=== PATIENT | male | born 1970 | race Caucasian/White ===

== ENCOUNTER 2020-10-15 12:19 | Emergency (ER) | payer OTHER, BC ==
[2020-10-15 12:36] VITALS: BP 178/93; PULSE 95; O2SAT 96
[2020-10-15] MEDS ORDERED: BABY ASPIRIN 81 MG CHEW PO ONE (13:13)
--- NOTE | 2020-10-15 13:13 | ERPHSYRPT ---
- History of Present Illness Time Seen by Provider: 10/15/20 12:35 Exam Limitations: no limitations Patient Subjective Stated Complaint: " My lower right leg has been hurting some and it's really tender to touch. The area feels warm and it all started on Wednesday. I'm worried about infection in my blood, that's happened before when I got these knots in my legs. It hurts to touch but I can still walk okay." Triage Nursing Assessment: Pt presents to ER with complaints of right lower extremity pain (currently in no pain). Area does appear hot to touch and slightly pink, slight knot noted under the skin. No redness or streaking noted. Pt states area appeared this way on Wednesday and has history of infection in his legs. Pt is alert and oriented x 3. Able to ambulate and communicate regularly. Pt respirations are unlabored, states had a "head cold" the other day, but feels okay. Pt abd is soft and nontender. Skin pink, warm, and dry. Leg is tender to touch. Physician History: Patient is a 50-year-old male presents to our ED with complaints of left pain. Symptoms started yesterday. Pain described as an ache that is localized. The area is red and tender. Patient states he has a history of superficial blood clots. Patient also concerned that he may be developing an infection as he has had sepsis in the past due to a lower leg infection. Patient states he is prediabetic. He has no chest pain or shortness of breath. No nausea vomiting or diaphoresis no abdominal pain. Pain is not worse with ambulation. Patient states otherwise healthy. He voices no other complaints at this time. Method of Injury: unknown Occurred: this morning Quality: constant (Patient is declined pain medication.) Severity of Pain-Max: moderate Severity of Pain-Current: mild Lower Extremities Pain: leg: right Modifying Factors: Improves With: movement Associated Symptoms: none, No dizzy, No fainted, No seizure, No snapping sensation, No popping sensation Allergies/Adverse Reactions: ceftriaxone [From Rocephin] Allergy (Severe, Verified 10/15/20 12:36) Hx Tetanus, Diphtheria Vaccination/Date Given: Yes Hx Influenza Vaccination/Date Given: Yes Hx Pneumococcal Vaccination/Date Given: Yes Immunizations Up to Date: Yes Travel Risk - International Travel Have you traveled outside of the country in past 3 weeks: No - Coronavirus Screening Are you exhibiting any of the following symptoms?: No Close contact with a COVID-19 positive Pt in past 14-21 Days: No - Review of Systems Constitutional: No Symptoms, No Fever, No Chills Eyes: No Symptoms Ears, Nose, & Throat: No Symptoms Respiratory: No Symptoms, No Cough, No Dyspnea Cardiac: No Symptoms, No Chest Pain, No Edema, No Syncope Abdominal/Gastrointestinal: No Symptoms, No Abdominal Pain, No Nausea, No Vomiting, No Diarrhea Genitourinary Symptoms: No Symptoms, No Dysuria Musculoskeletal: No Symptoms, No Back Pain, No Neck Pain Skin: No Symptoms, No Rash Neurological: No Symptoms, No Dizziness, No Focal Weakness, No Sensory Changes Psychological: No Symptoms Endocrine: No Symptoms Hematologic/Lymphatic: No Symptoms Immunological/Allergic: No Symptoms All Other Systems: Reviewed and Negative - Past Medical History Pertinent Past Medical History: Yes Neurological History: No Pertinent History ENT History: No Pertinent History Cardiac History: Hypertension Respiratory History: No Pertinent History Endocrine Medical History: Diabetes Type II, Hypothyroidism Musculoskeletal History: No Pertinent History GI Medical History: Hernia History: No Pertinent History Male Reproductive Disorders: No Pertinent History - Past Surgical History Past Surgical History: Yes Gastrointestinal: Appendectomy Musculoskeletal: Amputation, Orthopedic Surgery Other Surgical History: R 2nd digit, traumatic injury, sven knee replacement - Social History Smoking Status: Never smoker Exposure to second hand smoke: No Drug Use: none Patient Lives Alone: No - Nursing Vital Signs Nursing Vital Signs: Initial Vital Signs Temperature 98.4 F 10/15/20 12:28 Pulse Rate 95 H 10/15/20 12:28 Respiratory Rate 18 10/15/20 12:28 Blood Pressure 178/93 10/15/20 12:28 O2 Sat by Pulse Oximetry 96 10/15/20 12:28 Pain Scale Pain Intensity 0 - Physical Exam General Appearance: no apparent distress, alert, No mild distress, No moderate distress Eyes, Ears, Nose, Throat Exam: moist mucous membranes Neck Exam: non-tender, supple Cardiovascular/Respiratory Exam: chest non-tender, normal breath sounds, regular rate/rhythm, no respiratory distress Gastrointestinal/Abdominal Exam: non-tender, guarding Back Exam: normal inspection, No vertebral tenderness Hips Exam: bilateral: non-tender, normal inspection, normal range of motion, no evidence of injury Legs Exam: right leg: pain, soft tissue tenderness, other (Right lower extremity has a 3 x 3 cm area of hyperemia versus early cellulitis. No liban calf pain or tenderness. No popliteal pain or tenderness. Compartments are soft. Cap refill less than 2 seconds. Involved lower extremities neurovascular intact distally. No trauma.), left leg: non-tender, normal inspection, normal range of motion, no evidence of injury Knees Exam: bilateral knee: non-tender, normal inspection, normal range of motion, no evidence of injury Ankle Exam: bilateral ankle: non-tender, normal inspection, normal range of motion, no evidence of injury Foot Exam: bilateral foot: non-tender, normal inspection, normal range of motion, no evidence of injury Neuro/Tendon Exam: normal sensation, normal motor functions Mental Status Exam: alert, oriented x 3, cooperative Skin Exam: normal color, warm, dry SpO2: 96 O2 Delivery: Room Air - Course Nursing assessment & vital signs reviewed: Yes - Radiology Ultrasound Exam Venous Lower Extremity Ultrasound: tele radiology report (Per verbal learning technologist report patient has a superficial thrombophlebitis.) Ordered Tests: Active Orders 24 hr Category Date Time Status VENOUS UNILAT/LIMITED EXTREMIT [US] Stat Exams 10/15/20 12:39 Taken Medication Summary Generic Name Dose Route Start Last Admin Trade Name Freq PRN Reason Stop Dose Admin Clindamycin HCl 300 mg 10/15/20 13:14 Cleocin 150 Mg Capsule PO 10/15/20 13:15 STAT ONE Discontinued Medications Generic Name Dose Route Start Last Admin Trade Name Freq PRN Reason Stop Dose Admin Aspirin 324 mg 10/15/20 13:13 Baby Aspirin 81 Mg Chew PO 10/15/20 13:14 STAT ONE - Progress Progress: improved Progress Note: 10/15/20 13:21 Patient reassessed. He feels well. Patient claimed pain medication. Patient receives his care at [facility]. Diagnosis is a superficial thrombophlebitis. Possible early cellulitis. We will treat with aspirin and clindamycin. Patient agrees to call his [facility] doctor today to schedule appointment for follow-up within 48 hours. Patient voices no other complaints at this time. Vital stable. No chest pain or shortness of breath. Will discharge home. Patient agrees to take 325 aspirin daily until symptoms resolve or until told otherwise by his primary care physician. 10/15/20 13:23 Counseled pt/family regarding: diagnosis, need for follow-up, rad results - Departure Departure Disposition: Home Clinical Impression: Thrombophlebitis, Cellulitis Condition: Stable Critical Care Time: No Additional Instructions: Discharge/Care Plan ALBA WILLIAMSON was seen on 10/15/20 in the Emergency Room. The patient was counseled regarding Diagnosis,Lab results, Imaging studies, need for follow up and when to return to the Emergency Room. Prescriptions given: Discharge Note I have spoken with the patient and/or caregivers. I have explained the patient's condition, diagnosis and treatment plan based on the information available to me at this time. I have answered the patient's and/or caregiver's questions and addressed any concerns. The patient and/or caregivers have as good understanding of the patient's diagnosis, condition and treatment plan as can be expected at this point. The vital signs have been stable. The patient's condition is stable and appropriate for discharge from the emergency department. The patient will pursue further outpatient evaluation with the primary care physician or other designated or consulting physician as outlined in the discharge instructions. The patient and/or caregivers are agreeable to this plan of care and follow-up instructions have been explained in detail. The patient and/or caregivers have received these instruction. The patient/and or caregivers are aware that any significant change in condition or worsening of symptoms should prompt an immediate return to this or the closest emergency department or call 911. Prescriptions: Clindamycin HCl 150 mg [Cleocin 150 mg Capsule] 2 cap PO QID #56 capsule
[2020-10-15] MEDS ORDERED: CLEOCIN 150 MG CAPSULE PO ONE (13:14)
--- NOTE | 2020-10-15 13:19 | XRAY ---
Indication: Right leg pain and swelling. Two-dimensional sonogram and color Doppler imaging of the major venous vessels of the right leg was performed. Comparison: None Medial calf demonstrates subcutaneous venous varicosities with intraluminal echodensities favoring thrombophlebitis. No thrombus seen in the examined deep venous vessels of the right leg including greater saphenous vein. Veins demonstrate normal compressibility. Venous waveforms are normal with and without augmentation. Impression: Medial calf subcutaneous thrombophlebitis. Remaining right leg negative for DVT.
[2020-10-15] MEDS ORDERED: BABY ASPIRIN 81 MG CHEW ONE (13:26)
[2020-10-15] MEDS ORDERED: CLEOCIN 150 MG CAPSULE ONE (13:26)
== END 2020-10-15 13:39 | disposition home or self-care (01) ==
LOC: ED 12:19
DX: I80.9 Phlebitis and thrombophlebitis of unspecified site (principal); L03.115 Cellulitis of right lower limb; I80.291 Phlebitis and thrombophlebitis of other deep vessels of right lower extremity
CPT/HCPCS: 93971; 99284; A9270-GY

== ENCOUNTER 2021-09-20 16:04 | Observation (INO) | payer OTHER ==
[2021-09-20] MEDS ORDERED: DUONEB 0.5-3 MG/3 ml Neb IH ONE ×2 (16:27→16:36)
[2021-09-20] MEDS ORDERED: BABY ASPIRIN 81 MG CHEW PO ONE (16:28)
--- NOTE | 2021-09-20 16:33 | ERPHSYRPT ---
- History of Present Illness Time Seen by Provider: 09/20/21 16:10 Source: patient Exam Limitations: no limitations Physician History: 51 years old morbidly obese male with history of hypertension, hyperlipidemia, hypothyroidism, diabetes mellitus presented to the ER with chief complaint of intermittent shortness of breath with activity and chest pain since yesterday e vening. Patient reports getting short of breath with minimal activity and gets better with resting. Reports dull aching intermittent pain with radiation to the neck which is also aggravated with activity and shortness of breath. Denies any fever or chills. No cough or sick contact. Does not have history of CAD but does have family history of CAD. Timing/Duration: yesterday, constant, gradual onset, worse Activities at Onset: activity Severity of Dyspnea-Max: moderate Severity of Dyspnea-Current: moderate Possible Cause: no prior episodes Modifying Factors: Improves With: rest. Worsens With: activity, exertion Associated Symptoms: intermittent, chest pain/discomfort, tightness Allergies/Adverse Reactions: ceftriaxone [From Rocephin] Allergy (Severe, Verified 09/20/21 20:56) Anaphylactic Reaction Home Medications: Allopurinol 100 mg [Zyloprim 100 mg] 2 ea DAILY 09/20/21 [History] Aspirin 81 gm Chew [Baby Aspirin 81 mg Chew] 1 ea DAILY 09/20/21 [History] Lisinopril 10 mg [Zestril 10 MG] 10 mg PO DAILY 09/20/21 [History] Metformin HCl [Metformin ER Gastric] 1 ea BID 09/20/21 [History] Hx Tetanus, Diphtheria Vaccination/Date Given: Yes Hx Influenza Vaccination/Date Given: Yes Hx Pneumococcal Vaccination/Date Given: Yes - Review of Systems Constitutional: No Symptoms Eyes: No Symptoms Ears, Nose, & Throat: No Symptoms Respiratory: Dyspnea, Dyspnea on Exertion ([place]) Cardiac: Chest Pain Abdominal/Gastrointestinal: No Symptoms Genitourinary Symptoms: No Symptoms Musculoskeletal: No Symptoms Skin: No Symptoms Neurological: No Symptoms Psychological: No Symptoms Endocrine: No Symptoms Hematologic/Lymphatic: No Symptoms - Past Medical History Pertinent Past Medical History: Yes Neurological History: No Pertinent History ENT History: No Pertinent History Cardiac History: Hypertension Respiratory History: No Pertinent History Endocrine Medical History: Diabetes Type II, Hypothyroidism Musculoskeletal History: No Pertinent History GI Medical History: Hernia History: No Pertinent History Male Reproductive Disorders: No Pertinent History - Past Surgical History Past Surgical History: Yes Gastrointestinal: Appendectomy Musculoskeletal: Amputation, Orthopedic Surgery Other Surgical History: R 2nd digit, traumatic injury, sven knee replacement - Social History Smoking Status: Never smoker Exposure to second hand smoke: No Drug Use: none Patient Lives Alone: No - Nursing Vital Signs Nursing Vital Signs: Initial Vital Signs Temperature 97.2 F 09/20/21 16:04 Pulse Rate 73 09/20/21 16:04 Respiratory Rate 22 09/20/21 16:04 Blood Pressure 160/92 09/20/21 16:04 O2 Sat by Pulse Oximetry 97 09/20/21 16:04 Pain Scale Pain Intensity 4 - Physical Exam General Appearance: no apparent distress, alert Eye Exam: PERRL/EOMI, eyes nml inspection Ears, Nose, Throat Exam: hearing grossly normal, normal pharynx Neck Exam: normal inspection, non-tender, supple, full range of motion Respiratory Exam: normal breath sounds, lungs clear Abdominal/Gastrointestinal Exam: soft, normal bowel sounds, No tenderness Extremity Exam: non-tender, normal range of motion Neurologic Exam: alert, oriented x 3, cooperative Skin Exam: normal color SpO2 Interpretation: normal SpO2: 96 O2 Delivery: Room Air - Course EKG Interpreted by Me: RATE (78), Sinus Rhythm, NORMAL AXIS, NORMAL INTERVALS, Q-wave (Anterior), Other (LVH pattern) Ordered Tests: Active Orders 24 hr Category Date Time Status Bedrest ROUTINE Activity 09/20/21 20:26 Active Up With Assistance ROUTINE Activity 09/20/21 20:26 Active Edge Worker STAT Care 09/20/21 16:28 Completed Code Status Order ROUTINE Care 09/20/21 20:26 Active EKG-ER Only STAT Care 09/20/21 16:27 Completed Fall Protocol ROUTINE Care 09/20/21 20:26 Active IV Care Q6H Care 09/20/21 20:26 Active IV Insertion STAT Care 09/20/21 16:27 Completed POCT Glucose Check ACHS Care 09/20/21 20:[address] in Observation ROUTINE Care 09/20/21 20:26 Active [place], Apply ROUTINE Care 09/20/21 20:26 Active Weight,Daily 0600 Care 09/20/21 20:26 Active Consistent Carbohydrate Diet 1800 Calorie Diet 09/20/21 Breakfast Active CHEST 1 VIEW (PORTABLE) Stat Exams 09/20/21 16:27 Completed CHEST WITH CONTRAST [CT] Stat Exams 09/20/21 16:59 Completed CBC W DIFF AM.LAB Lab 09/21/21 04:00 Ordered CBC W DIFF Stat Lab 09/20/21 16:25 Completed CMP AM.LAB Lab 09/21/21 04:00 Ordered CMP Stat Lab 09/20/21 16:27 Completed D-DIMER QUANTITATIVE Stat Lab 09/20/21 16:25 Completed MAGNESIUM Stat Lab 09/20/21 16:27 Completed NT PRO BNP Stat Lab 09/20/21 16:27 Completed TROPONIN Q3H Lab 09/20/21 16:25 Completed TROPONIN Q3H Lab 09/20/21 19:11 Completed TROPONIN Q3H Lab 09/20/21 22:30 Ordered TROPONIN Q3H Lab 09/21/21 01:30 Ordered TROPONIN Q3H Lab 09/21/21 04:30 Ordered Respiratory Therapy Assessment DAILY RT 09/20/21 16:43 Completed Transfer Order Routine Transfer 09/20/21 Completed Medication Summary Generic Name Dose Route Start Last Admin Trade Name Freq PRN Reason Stop Dose Admin Acetaminophen 650 mg 09/20/21 20:26 Acetaminophen 325 Mg Tablet PO 10/20/21 20:25 Q4H PRN PRN PAIN AND/OR FEVER Albuterol/Ipratropium 3 ml 09/20/21 20:26 Ipratropium/Albuterol Sulfate 3 Ml Ampul.Neb [facility] 10/20/21 20:25 Q4HPRN PRN SHORTNESS OF BREATH/WHEEZING Hydromorphone HCl 0.5 mg 09/20/21 20:26 Hydromorphone 1 Mg/1ml Inj 1 Mg/Ml Syringe IV 09/25/21 20:25 Q4H PRN PRN PAIN Insulin Human Lispro 0 unit 09/20/21 20:26 Insulin Lispro 1 Unit SQ 10/20/21 20:25 UD PRN HYPERGLYCEMIA Ondansetron HCl 4 mg 09/20/21 20:26 Ondansetron Hcl 4 Mg/2 Ml Vial IV 10/20/21 20:25 Q6H PRN PRN NAUSEA/VOMITING Pantoprazole Sodium 40 mg 09/21/21 10:00 09/20/21 21:55 Pantoprazole 40 Mg Vial IV 10/21/21 09:59 40 mg Q24H10 SYED Administration Discontinued Medications Generic Name Dose Route Start Last Admin Trade Name Kayley PRN Reason Stop Dose Admin Albuterol/Ipratropium 3 ml 09/20/21 16:27 09/20/21 16:40 Ipratropium/Albuterol Sulfate 3 Ml Ampul.Neb [facility] 09/20/21 16:28 3 ml STAT ONE Administration Albuterol/Ipratropium Confirm 09/20/21 16:36 Ipratropium/Albuterol Sulfate 3 Ml Ampul.Neb Administered 09/20/21 16:37 Dose 3 ml [facility] .STK-MED ONE Aspirin 324 mg 09/20/21 16:28 09/20/21 16:52 Aspirin 81 Mg Tab.Chew PO 09/20/21 16:29 324 mg STAT ONE Administration Pantoprazole Sodium Confirm 09/20/21 21:49 Pantoprazole 40 Mg Vial Administered 09/20/21 21:50 Dose 40 mg IV .STK-MED ONE Lab/Rad Data: Laboratory Result Diagrams 09/20/21 16:25 09/20/21 16:27 Laboratory Results 09/20/21 09/20/21 09/20/21 Range/Units 19:11 19:11 16:27 WBC (4.0-10.5) K/mm3 RBC (4.1-5.6) M/mm3 Hgb (12.5-18.0) gm/dl Hct (42-50) % MCV (78-100) fl MCH (26-32) pg MCHC (32-36) g/dl RDW (11.5-14.0) % Plt Count (150-450) K/mm3 MPV (7.5-11.0) fl Gran % (36.0-66.0) % Eos # (Auto) (0-0.5) Absolute Lymphs (auto) (1.0-4.6) Absolute Monos (auto) (0.0-1.3) Lymphocytes % (24.0-44.0) % Monocytes % (0.0-12.0) % Eosinophils % (0.00-5.0) % Basophils % (0.0-0.4) % Absolute Granulocytes (1.4-6.9) Basophils # (0-0.4) D-Dimer (215-500) ng/mL Sodium 141 (137-145) mmol/L Potassium 3.8 (3.5-5.1) mmol/L Chloride 104 (98-107) mmol/L Carbon Dioxide 28 (22-30) mmol/L Anion Gap 12.9 (5-15) MEQ/L BUN 13 (9-20) mg/dL Creatinine 0.89 (0.66-1.25) mg/dL Estimated GFR > 60.0 ML/MIN Glucose 117 H (74-106) mg/dL Calcium 8.7 (8.4-10.2) mg/dL Magnesium 1.9 (1.6-2.3) mg/dL Total Bilirubin 0.70 (0.2-1.3) mg/dL AST 39 (17-59) U/L ALT 36 (0-50) U/L Alkaline Phosphatase 60 (38-126) U/L Troponin I < 0.012 (0.000-0.034) ng/mL NT-Pro-B Natriuret Pep 66.0 (0-900) pg/mL Serum Total Protein 7.5 (6.3-8.2) g/dL Albumin 4.2 (3.5-5.0) g/dL SARS-CoV-2 (PCR) NEGATIVE (NEGATIVE) 09/20/21 09/20/21 09/20/21 Range/Units 16:25 16:25 16:25 WBC 5.4 (4.0-10.5) K/mm3 RBC 4.84 (4.1-5.6) M/mm3 Hgb 13.8 (12.5-18.0) gm/dl Hct 43.1 (42-50) % MCV 89.0 (78-100) fl MCH 28.5 (26-32) pg MCHC 32.0 (32-36) g/dl RDW 14.2 H (11.5-14.0) % Plt Count 305 (150-450) K/mm3 MPV 10.2 (7.5-11.0) fl Gran % 58.0 (36.0-66.0) % Eos # (Auto) 0.17 (0-0.5) Absolute Lymphs (auto) 1.48 (1.0-4.6) Absolute Monos (auto) 0.57 (0.0-1.3) Lymphocytes % 27.6 (24.0-44.0) % Monocytes % 10.6 (0.0-12.0) % Eosinophils % 3.2 (0.00-5.0) % Basophils % 0.6 (0.0-0.4) % Absolute Granulocytes 3.12 (1.4-6.9) Basophils # 0.03 (0-0.4) D-Dimer 1900 H* (215-500) ng/mL Sodium (137-145) mmol/L Potassium (3.5-5.1) mmol/L Chloride (98-107) mmol/L Carbon Dioxide (22-30) mmol/L Anion Gap (5-15) MEQ/L BUN (9-20) mg/dL Creatinine (0.66-1.25) mg/dL Estimated GFR ML/MIN Glucose (74-106) mg/dL Calcium (8.4-10.2) mg/dL Magnesium (1.6-2.3) mg/dL Total Bilirubin (0.2-1.3) mg/dL AST (17-59) U/L ALT (0-50) U/L Alkaline Phosphatase (38-126) U/L Troponin I < 0.012 (0.000-0.034) ng/mL NT-Pro-B Natriuret Pep (0-900) pg/mL Serum Total Protein (6.3-8.2) g/dL Albumin (3.5-5.0) g/dL SARS-CoV-2 (PCR) (NEGATIVE) - Progress Progress: unchanged Air Movement: good Progress Note: 09/20/21 18:45 51 years old is evaluated for dyspnea on exertion and chest pain. EKG did not show any acute ischemic changes. Negative initial troponins. D-dimers are elevated, CTA negative for any acute cardiopulmonary findings. No pulmonary embolism. Grossly unremarkable work-up. Patient has a heart score of 4, discussed with Dr. Jackson, reviewed history work-up and patient is accepted for observation admission to rule out ACS. Blood Culture(s) Obtained: No Antibiotics given: No Discussed with DrCamryn: Iam Will see patient in: hospital (observation) Counseled pt/family regarding: lab results, diagnosis, rad results - Departure Departure Disposition: Observation Clinical Impression: Dyspnea on exertion Condition: Stable Critical Care Time: No
[2021-09-20 16:34] LABS: Absolute Neutrophil Ct (ANC) 3.12 (1.4-6.9); BASOPHIL % 0.6 % (0.0-0.4); Basophil (Absolute #) 0.03 (0-0.4); Eosinophil % 3.2 % (0.00-5.0); Eosinophil (Absolute #) 0.17 (0-0.5); Hematocrit 43.1 % (42-50); Hemoglobin 13.8 gm/dl (12.5-18.0); Lymphocyte (Absolute #) 1.48 (1.0-4.6); Lymphocytes % 27.6 % (24.0-44.0); Mean Corpuscular Hemoglobin 28.5 pg (26-32); Mean Platelet Volume 10.2 fl (7.5-11.0); Monocyte (Absolute #) 0.57 (0.0-1.3); Monocytes % 10.6 % (0.0-12.0); Platelet Count 305 K/mm3 (150-450); Red Blood Count 4.84 M/mm3 (4.1-5.6); Red Cell Distribution Width 14.2 % (11.5-14.0); White Blood Count 5.4 K/mm3 (4.0-10.5)
[2021-09-20 16:57] LABS: ALBUMIN 4.2 g/dL (3.5-5.0); ALKALINE PHOSPHATASE 60 U/L (38-126); ANION GAP 12.9 MEQ/L (5-15); BLOOD UREA NITROGEN 13 mg/dL (9-20); CHLORIDE 104 mmol/L (98-107); Calcium 8.7 mg/dL (8.4-10.2); Carbon Dioxide 28 mmol/L (22-30); Creatinine 1 0.89 mg/dL (0.66-1.25); EST GLOMERULAR FILTRATION RATE > 60.0 ML/MIN; Glucose 117 mg/dL (74-106); MAGNESIUM 1.9 mg/dL (1.6-2.3); Potassium 3.8 mmol/L (3.5-5.1); SGOT/AST 39 U/L (17-59); SGPT/ALT 36 U/L (0-50); SODIUM 141 mmol/L (137-145); Total Protein 7.5 g/dL (6.3-8.2)
--- NOTE | 2021-09-20 20:15 | XRAY ---
Indication: Short of breath. Comparison: None Portable chest demonstrates right hemidiaphragm elevation with right base atelectasis. Remaining heart, lungs, and bony thorax unremarkable.
--- NOTE | 2021-09-20 20:20 | XRAY ---
Indication: Short of breath. Elevated d-dimer. Multiple contiguous axial images obtained through the chest using 100 cc Isovue 370 contrast and PE protocol. Comparison: None There is good opacification of the pulmonary arteries to include the lobar and segmental branches. No pulmonary embolus. Heart is not enlarged. Aorta is normal in course and caliber. No pathologic mediastinal/hilar lymphadenopathy. Incidental 3.2 cm left thyroid hypodense nodule/cyst. There is right hemidiaphragm elevation with mild right base atelectasis. No suspicious pulmonary mass/nodule, infiltrate, effusion, or pneumothorax. Bony thorax intact. Limited upper abdomen demonstrates fatty liver. Impression: 1. Negative pulmonary embolus. No acute cardiopulmonary abnormalities. 2. Incidental right hemidiaphragm elevation with right base atelectasis, left thyroid hypodense nodule/cyst, and fatty liver. Comment: Preliminary interpretation made by [facility]. No critical discrepancy.
[2021-09-20] MEDS ORDERED: Hydromorphone 1 mg/ml Injection IV PRN (20:26)
[2021-09-20] MEDS ORDERED: HUMALOG SQ PRN (20:26)
[2021-09-20] MEDS ORDERED: TYLENOL 325 MG PO PRN (20:26)
[2021-09-20] MEDS ORDERED: Zofran 4 MG/2 ML VIAL IV PRN (20:26)
[2021-09-20] MEDS ORDERED: DUONEB 0.5-3 MG/3 ml Neb IH PRN (20:26)
[2021-09-20] MEDS ORDERED: PROTONIX 40 MG IV IV ONE (21:49)
[2021-09-21] MEDS ORDERED: solu-MEDROL 80 MG, Sterile H2O 10 ml 2 ML IV ONE ×2 (04:00)
[2021-09-21 06:05] LABS: Absolute Neutrophil Ct (ANC) 3.31 (1.4-6.9); BASOPHIL % 0.5 % (0.0-0.4); Basophil (Absolute #) 0.03 (0-0.4); Eosinophil % 3.9 % (0.00-5.0); Eosinophil (Absolute #) 0.22 (0-0.5); Hematocrit 42.9 % (42-50); Hemoglobin 13.5 gm/dl (12.5-18.0); Lymphocyte (Absolute #) 1.52 (1.0-4.6); Lymphocytes % 26.9 % (24.0-44.0); Mean Cell Volume 89.6 fl (78-100); Mean Corpuscular Hemoglobin 28.2 pg (26-32); Mean Corpuscular Hgb Concent. 31.5 g/dl (32-36); Mean Platelet Volume 10.5 fl (7.5-11.0); Monocyte (Absolute #) 0.57 (0.0-1.3); Monocytes % 10.1 % (0.0-12.0); Neutrophil % 58.6 % (36.0-66.0); Platelet Count 296 K/mm3 (150-450); Red Blood Count 4.79 M/mm3 (4.1-5.6); Red Cell Distribution Width 14.4 % (11.5-14.0); White Blood Count 5.7 K/mm3 (4.0-10.5)
[2021-09-21 06:34] LABS: ALBUMIN 3.9 g/dL (3.5-5.0); ALKALINE PHOSPHATASE 54 U/L (38-126); ANION GAP 10.8 MEQ/L (5-15); BLOOD UREA NITROGEN 13 mg/dL (9-20); CHLORIDE 103 mmol/L (98-107); Calcium 8.8 mg/dL (8.4-10.2); Carbon Dioxide 30 mmol/L (22-30); Creatinine 1 0.94 mg/dL (0.66-1.25); EST GLOMERULAR FILTRATION RATE > 60.0 ML/MIN; Glucose 130 mg/dL (74-106); Potassium 3.7 mmol/L (3.5-5.1); SGOT/AST 31 U/L (17-59); SGPT/ALT 35 U/L (0-50); SODIUM 140 mmol/L (137-145); Total Protein 7.2 g/dL (6.3-8.2)
[2021-09-21] MEDS ORDERED: PROTONIX 40 MG IV IV SCH (10:00)
[2021-09-21] MEDS: Lexapro 10 MG PO SCH (11:11)
[2021-09-21] MEDS: hydroDIURIL 25 MG PO SCH (11:11)
[2021-09-21] MEDS: SYNTHROID 88 MCG PO SCH (11:12)
[2021-09-21] MEDS: Zestril 20 MG PO SCH (11:12)
[2021-09-21] MEDS: ZYLOPRIM 100 MG PO SCH (11:12)
[2021-09-21] MEDS: ECOTRIN 81 MG PO SCH (11:12)
--- NOTE | 2021-09-21 14:24 | PCM.HP ---
History of Present Illness - Chief Complaint Chief Complaint: Dyspnea on exertion History of Present Illness: is a 51 year old male pt of Keily Bob NP at [facility], with PMHx HTN, hyperlipidemia, hypothyroidism, DM, morbid obesity, anxiety/depression who was admitted through ER with SOB. He says he's had SOB with anxeity for years, but 2 nights ago at work something changed. He was getting out of his chair and found himself very short of breath; didn't have enough air to yawn. He also had chest pressure, 7/10, radiated to his neck. Better when he would calm down. C/o palpitations; no diaphoresis, no nausea. Does tend to have occasional edema of the LE. This morning he said he still gets short of breath with as little exertion as tossing in his bed. In the ER note it says he has FHx CAD, but his story today endorses more of a viral cardiomyopathy in his dad, starting at age 52. Pt was admitted for CP/r/o NH. Troponins are neg x 5. EKG was non-acute. He did have a CT chest, neg for PE, but showed a 3.2cm thyroid mass, new. - Review of Systems Respiratory: Short Of Breath Cardiac: Chest Pain, Palpitations Psychological: Anxiety All Other Systems: Reviewed and Negative Medications & Allergies Home Medications: Home Medication List Allopurinol 100 mg [Zyloprim 100 mg] 200 mg PO DAILY 09/20/21 [History Confirmed 09/20/21] Aspirin 81 gm Chew [Baby Aspirin 81 mg Chew] 1 ea DAILY 09/20/21 [History Confirmed 09/20/21] Escitalopram Oxalate [Lexapro] 20 mg PO DAILY 09/20/21 [History Confirmed 09/20/21] Hydrochlorothiazide 25 mg [hydroDIURIL 25 MG] 25 mg PO DAILY 09/20/21 [History Confirmed 09/20/21] Levothyroxine Sodium 88 Mcg [Synthroid 88 Mcg] 88 mcg PO DAILY 09/20/21 [History Confirmed 09/20/21] Metformin HCl 1,000 mg PO BID 09/20/21 [History Confirmed 09/20/21] lisinopriL [Zestril] 40 mg PO DAILY 09/20/21 [History Confirmed 09/20/21] Allergies/Adverse Reactions: Allergies Allergy/AdvReac Type Severity Reaction Status Date / Time ceftriaxone [From Rocephin] Allergy Severe Anaphylactic Verified 09/20/21 20:56 Reaction - Past Medical History Past Medical History: Yes Neurological History: No Pertinent History ENT History: No Pertinent History Cardiac History: Hypertension Respiratory History: No Pertinent History Endocrine Medical History: Diabetes Type II, Hypothyroidism Musculoskelatal History: No Pertinent History GI Medical History: Hernia History: No Pertinent History Pyscho-Social History: Anxiety Male Reproductive Disorders: No Pertinent History Comment: Gout arthritis - Past Surgical History Past Surgical History: Yes GI Surgical History: Appendectomy Musculskeletal Surgical Hx: Amputation, Orthopedic Surgery Other Surgical History: R 2nd digit, traumatic injury, sven knee replacement - Social History Smoking Status: Never smoker Exposure to second hand smoke: No Alcohol: None Drug Use: none - Physical Exam Vital Signs: Vital Signs - 24 hr Temp Pulse Resp BP Pulse Ox 09/21/21 11:08 97.5 F 79 18 145/80 94 L 09/21/21 10:00 82 18 94 L 09/21/21 07:48 97.5 F 80 18 141/88 96 09/21/21 04:00 97.5 F 72 19 143/69 94 L 09/20/21 23:50 98.6 F 80 20 134/60 93 L 09/20/21 22:11 96 09/20/21 21:12 97.7 F 69 20 147/75 97 09/20/21 20:55 69 18 93 L 09/20/21 19:34 70 19 155/81 95 09/20/21 18:46 97.2 F 69 20 162/68 98 09/20/21 17:10 71 18 155/78 96 09/20/21 16:43 79 18 96 09/20/21 16:18 22 96 09/20/21 16:04 97.2 F 73 22 160/92 97 General Appearance: no apparent distress, alert, obese Neurologic Exam: oriented x 3, cooperative Eye Exam: eyes nml inspection Ears, Nose, Throat Exam: moist mucous membranes Neck Exam: normal inspection, non-tender, No mass, No lymphadenopathy, No th yromegaly Respiratory Exam: normal breath sounds, lungs clear, No crackles/rales, No rhonchi, No wheezing Cardiovascular Exam: regular rate/rhythm, normal heart sounds, No murmur Gastrointestinal/Abdomen Exam: soft, normal bowel sounds, No tenderness, No distention, No mass, No guarding, No rebound Back Exam: normal inspection, No CVA tenderness, No rash Extremity Exam: swelling (1+ pretibial edema bilat) Skin Exam: normal color, warm, dry, No rash Results - Labs Lab/Micro Results: Lab Results-Last 24 Hours 09/20/21 09/20/21 09/20/21 Range/Units 16:25 16:25 16:25 WBC 5.4 (4.0-10.5) K/mm3 RBC 4.84 (4.1-5.6) M/mm3 Hgb 13.8 (12.5-18.0) gm/dl Hct 43.1 (42-50) % MCV 89.0 (78-100) fl MCH 28.5 (26-32) pg MCHC 32.0 (32-36) g/dl RDW 14.2 H (11.5-14.0) % Plt Count 305 (150-450) K/mm3 MPV 10.2 (7.5-11.0) fl Gran % 58.0 (36.0-66.0) % Eos # (Auto) 0.17 (0-0.5) Absolute Lymphs (auto) 1.48 (1.0-4.6) Absolute Monos (auto) 0.57 (0.0-1.3) Lymphocytes % 27.6 (24.0-44.0) % Monocytes % 10.6 (0.0-12.0) % Eosinophils % 3.2 (0.00-5.0) % Basophils % 0.6 (0.0-0.4) % Absolute Granulocytes 3.12 (1.4-6.9) Basophils # 0.03 (0-0.4) D-Dimer 1900 H* (215-500) ng/mL Sodium (137-145) mmol/L Potassium (3.5-5.1) mmol/L Chloride (98-107) mmol/L Carbon Dioxide (22-30) mmol/L Anion Gap (5-15) MEQ/L BUN (9-20) mg/dL Creatinine (0.66-1.25) mg/dL Estimated GFR ML/MIN Glucose (74-106) mg/dL POC Glucometer (74 to 106) mg/dL Hemoglobin A1c (4.5-6.0) % Calcium (8.4-10.2) mg/dL Magnesium (1.6-2.3) mg/dL Total Bilirubin (0.2-1.3) mg/dL AST (17-59) U/L ALT (0-50) U/L Alkaline Phosphatase (38-126) U/L Troponin I < 0.012 (0.000-0.034) ng/mL NT-Pro-B Natriuret Pep (0-900) pg/mL Serum Total Protein (6.3-8.2) g/dL Albumin (3.5-5.0) g/dL SARS-CoV-2 (PCR) (NEGATIVE) 09/20/21 09/20/21 09/20/21 Range/Units 16:27 19:11 19:11 WBC (4.0-10.5) K/mm3 RBC (4.1-5.6) M/mm3 Hgb (12.5-18.0) gm/dl Hct (42-50) % MCV (78-100) fl MCH (26-32) pg MCHC (32-36) g/dl RDW (11.5-14.0) % Plt Count (150-450) K/mm3 MPV (7.5-11.0) fl Gran % (36.0-66.0) % Eos # (Auto) (0-0.5) Absolute Lymphs (auto) (1.0-4.6) Absolute Monos (auto) (0.0-1.3) Lymphocytes % (24.0-44.0) % Monocytes % (0.0-12.0) % Eosinophils % (0.00-5.0) % Basophils % (0.0-0.4) % Absolute Granulocytes (1.4-6.9) Basophils # (0-0.4) D-Dimer (215-500) ng/mL Sodium 141 (137-145) mmol/L Potassium 3.8 (3.5-5.1) mmol/L Chloride 104 (98-107) mmol/L Carbon Dioxide 28 (22-30) mmol/L Anion Gap 12.9 (5-15) MEQ/L BUN 13 (9-20) mg/dL Creatinine 0.89 (0.66-1.25) mg/dL Estimated GFR > 60.0 ML/MIN Glucose 117 H (74-106) mg/dL POC Glucometer (74 to 106) mg/dL Hemoglobin A1c (4.5-6.0) % Calcium 8.7 (8.4-10.2) mg/dL Magnesium 1.9 (1.6-2.3) mg/dL Total Bilirubin 0.70 (0.2-1.3) mg/dL AST 39 (17-59) U/L ALT 36 (0-50) U/L Alkaline Phosphatase 60 (38-126) U/L Troponin I < 0.012 (0.000-0.034) ng/mL NT-Pro-B Natriuret Pep 66.0 (0-900) pg/mL Serum Total Protein 7.5 (6.3-8.2) g/dL Albumin 4.2 (3.5-5.0) g/dL SARS-CoV-2 (PCR) NEGATIVE (NEGATIVE) 09/20/21 09/20/21 09/21/21 Range/Units 20:48 22:30 01:55 WBC (4.0-10.5) K/mm3 RBC (4.1-5.6) M/mm3 Hgb (12.5-18.0) gm/dl Hct (42-50) % MCV (78-100) fl MCH (26-32) pg MCHC (32-36) g/dl RDW (11.5-14.0) % Plt Count (150-450) K/mm3 MPV (7.5-11.0) fl Gran % (36.0-66.0) % Eos # (Auto) (0-0.5) Absolute Lymphs (auto) (1.0-4.6) Absolute Monos (auto) (0.0-1.3) Lymphocytes % (24.0-44.0) % Monocytes % (0.0-12.0) % Eosinophils % (0.00-5.0) % Basophils % (0.0-0.4) % Absolute Granulocytes (1.4-6.9) Basophils # (0-0.4) D-Dimer (215-500) ng/mL Sodium (137-145) mmol/L Potassium (3.5-5.1) mmol/L Chloride (98-107) mmol/L Carbon Dioxide (22-30) mmol/L Anion Gap (5-15) MEQ/L BUN (9-20) mg/dL Creatinine (0.66-1.25) mg/dL Estimated GFR ML/MIN Glucose (74-106) mg/dL POC Glucometer 101 (74 to 106) mg/dL Hemoglobin A1c (4.5-6.0) % Calcium (8.4-10.2) mg/dL Magnesium (1.6-2.3) mg/dL Total Bilirubin (0.2-1.3) mg/dL AST (17-59) U/L ALT (0-50) U/L Alkaline Phosphatase (38-126) U/L Troponin I < 0.012 < 0.012 (0.000-0.034) ng/mL NT-Pro-B Natriuret Pep (0-900) pg/mL Serum Total Protein (6.3-8.2) g/dL Albumin (3.5-5.0) g/dL SARS-CoV-2 (PCR) (NEGATIVE) 09/21/21 09/21/21 09/21/21 Range/Units 05:20 05:20 05:20 WBC 5.7 (4.0-10.5) K/mm3 RBC 4.79 (4.1-5.6) M/mm3 Hgb 13.5 (12.5-18.0) gm/dl Hct 42.9 (42-50) % MCV 89.6 (78-100) fl MCH 28.2 (26-32) pg MCHC 31.5 L (32-36) g/dl RDW 14.4 H (11.5-14.0) % Plt Count 296 (150-450) K/mm3 MPV 10.5 (7.5-11.0) fl Gran % 58.6 (36.0-66.0) % Eos # (Auto) 0.22 (0-0.5) Absolute Lymphs (auto) 1.52 (1.0-4.6) Absolute Monos (auto) 0.57 (0.0-1.3) Lymphocytes % 26.9 (24.0-44.0) % Monocytes % 10.1 (0.0-12.0) % Eosinophils % 3.9 (0.00-5.0) % Basophils % 0.5 (0.0-0.4) % Absolute Granulocytes 3.31 (1.4-6.9) Basophils # 0.03 (0-0.4) D-Dimer (215-500) ng/mL Sodium 140 (137-145) mmol/L Potassium 3.7 (3.5-5.1) mmol/L Chloride 103 (98-107) mmol/L Carbon Dioxide 30 (22-30) mmol/L Anion Gap 10.8 (5-15) MEQ/L BUN 13 (9-20) mg/dL Creatinine 0.94 (0.66-1.25) mg/dL Estimated GFR > 60.0 ML/MIN Glucose 130 H (74-106) mg/dL POC Glucometer (74 to 106) mg/dL Hemoglobin A1c (4.5-6.0) % Calcium 8.8 (8.4-10.2) mg/dL Magnesium (1.6-2.3) mg/dL Total Bilirubin 0.70 (0.2-1.3) mg/dL AST 31 (17-59) U/L ALT 35 (0-50) U/L Alkaline Phosphatase 54 (38-126) U/L Troponin I < 0.012 (0.000-0.034) ng/mL NT-Pro-B Natriuret Pep (0-900) pg/mL Serum Total Protein 7.2 (6.3-8.2) g/dL Albumin 3.9 (3.5-5.0) g/dL SARS-CoV-2 (PCR) (NEGATIVE) 09/21/21 09/21/21 09/21/21 Range/Units 05:30 07:33 11:19 WBC (4.0-10.5) K/mm3 RBC (4.1-5.6) M/mm3 Hgb (12.5-18.0) gm/dl Hct (42-50) % MCV (78-100) fl MCH (26-32) pg MCHC (32-36) g/dl RDW (11.5-14.0) % Plt Count (150-450) K/mm3 MPV (7.5-11.0) fl Gran % (36.0-66.0) % Eos # (Auto) (0-0.5) Absolute Lymphs (auto) (1.0-4.6) Absolute Monos (auto) (0.0-1.3) Lymphocytes % (24.0-44.0) % Monocytes % (0.0-12.0) % Eosinophils % (0.00-5.0) % Basophils % (0.0-0.4) % Absolute Granulocytes (1.4-6.9) Basophils # (0-0.4) D-Dimer (215-500) ng/mL Sodium (137-145) mmol/L Potassium (3.5-5.1) mmol/L Chloride (98-107) mmol/L Carbon Dioxide (22-30) mmol/L Anion Gap (5-15) MEQ/L BUN (9-20) mg/dL Creatinine (0.66-1.25) mg/dL Estimated GFR ML/MIN Glucose (74-106) mg/dL POC Glucometer 131 H 155 H (74 to 106) mg/dL Hemoglobin A1c 7.25 H (4.5-6.0) % Calcium (8.4-10.2) mg/dL Magnesium (1.6-2.3) mg/dL Total Bilirubin (0.2-1.3) mg/dL AST (17-59) U/L ALT (0-50) U/L Alkaline Phosphatase (38-126) U/L Troponin I (0.000-0.034) ng/mL NT-Pro-B Natriuret Pep (0-900) pg/mL Serum Total Protein (6.3-8.2) g/dL Albumin (3.5-5.0) g/dL SARS-CoV-2 (PCR) (NEGATIVE) Accuchecks Date 09/21/21 Date 09/21/21 Date 09/20/21 Time 11:35 Time 07:41 Time 20:50 - Radiology Impressions Radiology Exams & Impressions: Radiology Procedures Category Date Time Status CHEST 1 VIEW (PORTABLE) Stat Exams 09/20/21 16:27 Completed CHEST WITH CONTRAST [CT] Stat Exams 09/20/21 16:59 Completed THYROID [US] Routine Exams 09/22/21 Ordered - Other Procedures and Tests Respiratory Therapy 10/30/21 21:20 Respiratory Therapy Assessment DAILY Assessment/Plan (1) Chest pain Current Visit: Yes Status: Ruled-out Qualifiers: Chest pain type: unspecified Qualified Code(s): R07.9 - Chest pain, unspecified Assessment & Plan: NH ruled out Code(s): R07.9 - CHEST PAIN, UNSPECIFIED (2) Dyspnea on exertion Current Visit: Yes Status: Acute Assessment & Plan: Marked. Has ruled out for NH with 5 neg troponins and nonacute EKG. This is a different feeling for him then his usual anxiety. Will check out thyroid as below. Echocardiogram for tomorrow. If nothing abnormal noted, would consider pulmonology referral and possibly cardiac referral/stress test. Code(s): R06.00 - DYSPNEA, UNSPECIFIED (3) Thyroid mass Current Visit: Yes Status: Acute Assessment & Plan: check u/s thyroid, TSH, t3 and t4 tomorrow. 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 Code(s): E11.9 - TYPE 2 DIABETES MELLITUS WITHOUT COMPLICATIONS (5) Hypothyroid Current Visit: Yes Status: Chronic Qualifiers: Hypothyroidism type: acquired Qualified Code(s): E03.9 - Hypothyroidism, unspecified Code(s): E03.9 - HYPOTHYROIDISM, UNSPECIFIED (6) HTN (hypertension) Current Visit: Yes Status: Chronic Qualifiers: Hypertension type: primary hypertension Qualified Code(s): I10 - Essential (primary) hypertension Code(s): I10 - ESSENTIAL (PRIMARY) HYPERTENSION (7) Anxiety Current Visit: Yes Status: Chronic Code(s): F41.9 - ANXIETY DISORDER, UNSPECIFIED
[2021-09-21 15:26] LABS: FREE TRIODOTHYRONINE 4.31 pg/mL (2.77-5.27); TSH, 3RD Generation 2.66 mIU/L (0.47-4.68)
[2021-09-21] MEDS: PROTONIX 40 MG IV IV SCH (21:22)
[2021-09-22] MEDS: ZYLOPRIM 100 MG PO SCH (09:23)
[2021-09-22] MEDS: hydroDIURIL 25 MG PO SCH (09:23)
[2021-09-22] MEDS: SYNTHROID 88 MCG PO SCH (09:23)
[2021-09-22] MEDS: ECOTRIN 81 MG PO SCH (09:23)
[2021-09-22] MEDS: Zestril 20 MG PO SCH (09:24)
[2021-09-22] MEDS: Lexapro 10 MG PO SCH (09:24)
[2021-09-22] MEDS ORDERED: NON-FORMULARY ITEM (Escitalopram Oxalate [Lexapro] 20 MG Tablet) PO SCH (10:00)
[2021-09-22] MEDS ORDERED: BABY ASPIRIN 81 MG CHEW PO SCH (10:00)
[2021-09-22] MEDS ORDERED: NON-FORMULARY ITEM (Lisinopril [Zestril] 40 MG Tablet) PO SCH (10:00)
--- NOTE | 2021-09-22 12:05 | XRAY ---
Indication: Left thyroid mass on recent CT chest. Two-dimensional thyroid sonogram performed. Comparison: None Borderline enlarged left lobe measuring 5.7 x 3.4 x 2.9 cm. Right lobe normal in size measuring 4.3 x 2.2 x 1.9 cm. Isthmus measures 4.4 mm. Left midpole demonstrates a 3.7 x 3.4 x 2.9 cm heterogeneous predominantly solid mass without abnormal color flow. No other solid/cystic mass. Impression: Borderline enlarged left lobe with indeterminant heterogeneous left lobe mass as detailed.
--- NOTE | 2021-09-22 12:08 | XRAY ---
Indication: Elevated d-dimer. Two-dimensional sonogram and color Doppler imaging of the major venous vessels of the left and right leg performed. Comparison: Right leg venous sonogram October 15, 2020. No thrombus seen in the examined deep venous vessels of the left and right leg including greater saphenous vein. Veins demonstrate normal compressibility. Venous waveforms are normal with and without augmentation. Impression: Left and right legs negative for DVT.
--- NOTE | 2021-09-22 14:11 | PCM.NOTE ---
Date and Time: 09/22/21 1410 OBJECTIVE DATA Vital Signs: Vital Signs - 24 hr Temp Pulse Resp BP Pulse Ox 09/22/21 12:00 97.9 F 95 H 18 138/74 94 L 09/22/21 07:30 97.6 F 66 19 144/72 95 09/22/21 04:00 97.7 F 68 18 141/76 95 09/22/21 03:40 94 L 09/21/21 23:50 97.9 F 67 19 155/84 93 L 09/21/21 20:00 98.1 F 70 18 141/82 94 L 09/21/21 18:51 72 18 93 L 09/21/21 16:00 97.6 F 74 16 155/83 94 L Pain Assessment - Last Documented Pain Intensity 0 Pain Scale Used 0-10 Pain Scale Intake and Output: Intake & Output 09/20/21 09/21/21 09/22/21 09/23/21 11:59 11:59 11:59 11:59 Intake Total 840 2180 240 Balance 840 2180 240 Weight 169.2 kg Lab Results: Lab Results-Last 24 Hours 09/21/21 09/21/21 09/21/21 Range/Units 05:20 05:20 16:25 POC Glucometer 122 H (74 to 106) mg/dL Free T4 1.11 (0.76-1.46) ng/dL Free T3 pg/mL 4.31 (2.77-5.27) pg/mL TSH 3rd Generation 2.660 (0.47-4.68) mIU/L 09/21/21 09/22/21 09/22/21 Range/Units 20:26 07:08 11:50 POC Glucometer 162 H 152 H TNP (74 to 106) mg/dL Free T4 (0.76-1.46) ng/dL Free T3 pg/mL (2.77-5.27) pg/mL TSH 3rd Generation (0.47-4.68) mIU/L Radiology Exams: Radiology Procedures Category Date Time Status CHEST 1 VIEW (PORTABLE) Stat Exams 09/20/21 16:27 Completed CHEST WITH CONTRAST [CT] Stat Exams 09/20/21 16:59 Completed THYROID [US] Routine Exams 09/22/21 Completed ULTRASOUND BILATERAL LOWER EXTREMITY [VENOUS BILATERAL Exams 09/22/21 Completed EXTREMITY] [US] Urgent Multi-Disciplinary Progress Notes: Multi-Disciplinary Progress Notes 09/22/21 09:29 Case Management Note by Nichelle Vázquez placed order for overnight pulse ox study d/t patient noted having decreased sat while sleeping Initialized on 09/22/21 09:29 - END OF NOTE
[2021-09-22] MEDS: VENTOLIN COMMON CANISTER IH SCH ×2 (14:45→18:13)
[2021-09-22] MEDS: PROTONIX 40 MG IV IV SCH (22:16)
[2021-09-23 06:56] VITALS: BP 121/59
[2021-09-23] MEDS: VENTOLIN COMMON CANISTER IH SCH (07:54)
[2021-09-23 07:58] VITALS: PULSE 72; O2SAT 97
[2021-09-23 19:51] LABS: Thyroglobulin Antibody <1.0 IU/mL (0.0-0.9)
--- NOTE | 2021-09-24 09:31 | PCM.DS ---
Discharge Summary Date of Admission: 09/20/21 20:25 Date of Discharge: 09/23/2821 Admitting Physician: VANDANA WYATT Primary Care Provider: [facility] Allergies Allergies ceftriaxone [From Rocephin] Allergy (Severe, Verified 09/20/21 20:56) Anaphylactic Reaction Hospital Summary - Hospital Course Hospital Course: Patient was admitted through ER with dyspnea. He described air hunger during activity and at rest. O2 sats dropped in the 80s during sleep and formal overnight oximetery showed sleep apnea but patient will need a formal sleep study through [facility]. It is improtant he have supplemental O2 during the night at this time ,2L/NC during sleep. He also had wheezing per exam and was started on Albuterol.Troponins were negative. He will remain off work until he is treated and relieved of the dyspnic episodes. - Vitals & Intake/Output Vital Signs: Vital Signs Temperature 97.5 F 09/23/21 06:55 Pulse Rate 72 09/23/21 07:55 Respiratory Rate 18 09/23/21 07:55 Blood Pressure 121/59 09/23/21 06:55 O2 Sat by Pulse Oximetry 97 09/23/21 07:55 Intake & Output: Intake & Output 09/21/21 09/22/21 09/23/21 09/24/21 11:59 11:59 11:59 11:59 Intake Total 840 2180 1620 Balance 840 2180 1620 Weight 169.2 kg 163.9 kg - Lab Result Diagrams: 09/21/21 05:20 09/21/21 05:20 Lab Results-Last 24 Hrs: Lab Results-Last 24 Hours 09/22/21 Range/Units 14:15 Thyroperoxidase Ab 13 (0-34) IU/mL Thyroglobulin Antibody <1.0 (0.0-0.9) IU/mL - Procedures and Test Procedures and Tests throughout Hospitalization: Therapy Orders & Screens 09/20/21 16:43 Respiratory Therapy Assessment DAILY Comment: 09/20/21 21:20 Respiratory Therapy Assessment DAILY Comment: Diagnosis: Dyspnea on exertion 09/22/21 04:05 Oxygen NASAL CANNULA 2 lpm Comment: Diagnosis: Dyspnea on exertion Final Diagnosis/Problem List - Final Discharge Diagnosis/Problem (1) Dyspnea on exertion Status: Acute Code(s): R06.00 - DYSPNEA, UNSPECIFIED (2) Hypoxia Status: Acute Code(s): R09.02 - HYPOXEMIA (3) Wheezing Status: Acute Code(s): R06.2 - WHEEZING - Discharge Disposition: Home, Self-Care Condition: Stable Prescriptions: Continue Aspirin 81 gm Chew [Baby Aspirin 81 mg Chew] 1 ea DAILY Levothyroxine Sodium 88 Mcg [Synthroid 88 Mcg] 88 mcg PO DAILY Hydrochlorothiazide 25 mg [hydroDIURIL 25 MG] 25 mg PO DAILY Escitalopram Oxalate [Lexapro] 20 mg PO DAILY Allopurinol 100 mg [Zyloprim 100 mg] 200 mg PO DAILY lisinopriL [Zestril] 40 mg PO DAILY Metformin HCl 1,000 mg PO BID Instructions: Oxygen Therapy, Adult (DC), Shortness of Breath (Dyspnea), Thyroid Nodules, Breathing Exercises Additional Instructions: -FOLLOW UP WITH [facility] REGARDING AN OUTPATIENT SLEEP STUDY -PLEASE COME TO [facility] ON WEDNESDAY, September AT 2PM FOR A CALCIUM SCORING TEST. YOUR OXYGEN ORDER WAS SENT TO [facility] AT [facility]. HER PHONE NUMBER IS [phone]. THEY CONTRACT THEIR OXYGEN THRU [facility]. THEIR PHONE NUMBER IS [phone] Follow up with: YON CALDWELL NP [NON-STAFF PHY W/O PRIVILEGES] - Call for Appointment (UNABLE TO SCHEDULE APPOINTMENT. PT TO SET UP APPOINTMENT.) Forms: Work/School Release Form
== END 2021-09-23 09:06 | disposition home or self-care (01) ==
LOC: ED 16:04 → MED SURG 20:25
PROVIDERS: ADMIT Family Medicine; ATTEND Family Medicine
DX: R06.00 Dyspnea, unspecified (principal); R09.02 Hypoxemia; R06.2 Wheezing; R07.9 Chest pain, unspecified; I10 Essential (primary) hypertension; E07.9 Disorder of thyroid, unspecified; E78.5 Hyperlipidemia, unspecified; E11.9 Type 2 diabetes mellitus without complications; F41.9 Anxiety disorder, unspecified; E03.9 Hypothyroidism, unspecified; Z79.899 Other long term (current) drug therapy; Z20.822 Contact with and (suspected) exposure to COVID-19
CPT/HCPCS: 36000; 36415; 71045; 71260; 76536; 80053; 82947; 83036; 83735; 83880; 84439; 84443; 84481; 84484; 85025; 85379; 86376; 86800; 93005; 93041; 93268; 93970; 94640; 94760; 94762; 99285; G0378; U0003; J1817; A9270-GY

== ENCOUNTER 2023-05-12 22:10 | Emergency (ER) | payer OTHER ==
[2023-05-12] MEDS ORDERED: Sodium Chloride 0.9% 1000 ML 1,000 ML IV STA (22:39)
[2023-05-12] MEDS ORDERED: Sodium Chloride 0.9% 1000 ML 1,000 ML ONE (22:46)
[2023-05-12 22:52] LABS: Absolute Neutrophil Ct (ANC) 3.76 x10^3/uL (1.4-6.9); BASOPHIL % 0.6 % (0.0-0.4); Basophil (Absolute #) 0.04 x10^3/uL (0-0.4); Eosinophil % 3.7 % (0.00-5.0); Eosinophil (Absolute #) 0.23 x10^3/uL (0-0.5); Hematocrit 41.8 % (42-50); Hemoglobin 13.5 g/dL (12.5-18.0); IMMATURE GRAN # 0.01 x10^3u/L (0.00-0.03); IMMATURE GRAN % 0.2 % (0.00-0.4); Lymphocytes % 25.6 % (24.0-44.0); Mean Cell Volume 89.7 fL (78-100); Mean Corpuscular Hgb Concent. 32.3 g/dL (32-36); Mean Platelet Volume 10.8 fL (7.5-11.0); Monocyte (Absolute #) 0.61 x10^3/uL (0.0-1.3); Monocytes % 9.8 % (0.0-12.0); Neutrophil % 60.1 % (36.0-66.0); Platelet Count 287 x10^3/uL (150-450); Red Blood Count 4.66 x10^6/uL (4.1-5.6); Red Cell Distribution Width 13.2 % (11.5-14.0); White Blood Count 6.3 x10^3/uL (4.0-10.5)
--- NOTE | 2023-05-12 22:53 | ERPHSYRPT ---
- History of Present Illness Time Seen by Provider: 05/12/23 22:22 Source: patient Patient Subjective Stated Complaint: rt sided low back pain Triage Nursing Assessment: pt ambulated into ER without diff, at bedside. Pt alert and oriented x4, cooperative. Pt c/o rt sided low back pain with no radiation, which came on all of a sudden around 2030 this evening, while outside playing with his dogs. Pt vomited x4 at home due to the pain. Abd lg, obese with active bs x4 quad, nontender on palpation. LBM was today. Pt's states, "My pain is alot better right now but I'm very sore to my low back on the right side." Physician History: Patient is a 53-year-old male presents to our ED for evaluation of acute onset right low back pain. Pain started approximately 2029. Patient states he was outdoors playing with his dog when the pain started abruptly. Pain was so severe patient vomited 4 times. However pain improved prior to arrival. Patient currently declines pain medication. He is no longer nauseous. Pain is well localized. No radiation. Patient states his back is feels somewhat sore. No falls. No trauma. No associated chest pain or shortness of breath. No abdominal pain. Patient denies gross hematuria. Symptoms are moderate in intensity. Patient experiences a sore sensation with movement. Patient otherwise feels well. Patient has a history of ureterolithiasis. Patient states pain is similar. at bedside. They voiced no other complaints or concerns at this time. Portions of this note were created with voice recognition technology. There may be grammatical, spelling, punctuation or sound alike errors Timing/Duration: today Method of Injury: unknown Quality: aching Back Pain Location: lumbar spine Severity of Pain-Max: severe Severity of Pain-Current: mild Modifying Factors: Improves With: movement Associated Symptoms: nausea, vomiting Previous symptoms: same symptoms as today Allergies/Adverse Reactions: ceftriaxone [From Rocephin] Allergy (Severe, Verified 05/12/23 22:27) Anaphylactic Reaction Home Medications: Allopurinol 100 mg [Zyloprim 100 mg] 200 mg PO DAILY 09/20/21 [History] Aspirin 81 gm Chew [Baby Aspirin 81 mg Chew] 1 ea PO DAILY 09/20/21 [History] Escitalopram Oxalate [Lexapro] 30 mg PO DAILY 09/20/21 [History] Hydrochlorothiazide 25 mg [hydroDIURIL 25 MG] 25 mg PO DAILY 09/20/21 [History] Levothyroxine Sodium 88 Mcg [Synthroid 88 Mcg] 88 mcg PO DAILY 09/20/21 [History] Metformin HCl 1,000 mg PO BID 09/20/21 [History] lisinopriL [Zestril] 40 mg PO DAILY 09/20/21 [History] Hx Tetanus, Diphtheria Vaccination/Date Given: Yes Hx Influenza Vaccination/Date Given: Yes Hx Pneumococcal Vaccination/Date Given: No Immunizations Up to Date: Yes Travel Risk - International Travel Have you traveled outside of the country in past 3 weeks: Yes If Yes, where;: [place] - Coronavirus Screening Are you exhibiting any of the following symptoms?: Yes Symptoms: Vomiting/Diarrhea Close contact with a COVID-19 positive Pt in past 14-21 Days: No - Vaccine Status Have you recieved a Covid-19 vaccination: Yes Risk Control Field Representative: Unknown - Vaccination Dates Date of 2cond Vaccination (if applicable): . Dates if Unknown: . - Review of Systems Constitutional: No Symptoms, No Fever, No Chills Eyes: No Symptoms Ears, Nose, & Throat: No Symptoms Respiratory: No Symptoms, No Cough, No Dyspnea Cardiac: No Symptoms, No Chest Pain, No Edema, No Syncope Abdominal/Gastrointestinal: No Symptoms, No Abdominal Pain, No Nausea, No Vomiting, No Diarrhea Genitourinary Symptoms: No Symptoms, No Dysuria Musculoskeletal: No Symptoms, No Back Pain, No Neck Pain Skin: No Symptoms, No Rash Neurological: No Symptoms, No Dizziness, No Focal Weakness, No Sensory Changes Psychological: No Symptoms Endocrine: No Symptoms Hematologic/Lymphatic: No Symptoms Immunological/Allergic: No Symptoms All Other Systems: Reviewed and Negative - Past Medical History Pertinent Past Medical History: Yes Neurological History: No Pertinent History ENT History: No Pertinent History Cardiac History: Hypertension Respiratory History: No Pertinent History Endocrine Medical History: Diabetes Type II, Hypothyroidism Musculoskeletal History: No Pertinent History GI Medical History: Hernia History: No Pertinent History Psycho-Social History: Anxiety, Depression, Other Male Reproductive Disorders: No Pertinent History Other Medical History: Gout arthritis, PTSD - Past Surgical History Past Surgical History: Yes Gastrointestinal: Appendectomy Musculoskeletal: Amputation, Orthopedic Surgery Other Surgical History: R 2nd digit, traumatic injury, sven knee replacement - Social History Smoking Status: Never smoker Exposure to second hand smoke: No Drug Use: none Patient Lives Alone: No - Nursing Vital Signs Nursing Vital Signs: Initial Vital Signs Temperature 97.2 F 05/12/23 22:15 Pulse Rate 90 05/12/23 22:15 Respiratory Rate 22 05/12/23 22:15 Blood Pressure 203/101 05/12/23 22:15 O2 Sat by Pulse Oximetry 94 L 05/12/23 22:15 Pain Scale Pain Intensity 2 - Physical Exam General Appearance: no apparent distress, alert Eye Exam: PERRL/EOMI, eyes nml inspection Ears, Nose, Throat Exam: pharynx normal Neck Exam: normal inspection, non-tender, supple, full range of motion, No meningismus, No midline tenderness Respiratory Exam: normal breath sounds, lungs clear, airway intact, No resp iratory distress Cardiovascular Exam: regular rate/rhythm, normal heart sounds Gastrointestinal Exam: soft, other (No pulsatile abdominal masses), No tenderness, No mass Back Exam: other (Tenderness to palpation right posterior low back.), No rash Extremity Exam: normal inspection, normal range of motion, swelling (Chronic bilateral lower extremity pitting edema.), No calf tenderness, No pedal edema Peripheral Pulses: dorsalis-pedis (R): 2+, dorsalis-pedis (L): 2+ Neurologic Exam: alert, oriented x 3, cooperative, administrative liaison II-XII nml as tested, normal mood/affect, nml station & gait, sensation nml, No motor deficits Skin Exam: normal color, warm, dry, No rash Lymphatic Exam: No adenopathy SpO2 Interpretation: normal SpO2: 94 O2 Delivery: Room Air - Course Nursing assessment & vital signs reviewed: Yes Ordered Tests: Active Orders 24 hr Category Date Time Status ABDOMEN AND PELVIS W/0 CONTRAS [CT] Stat Exams 05/12/23 22:37 Completed CBC W DIFF Stat Lab 05/12/23 22:40 Completed CMP Stat Lab 05/12/23 22:40 Completed UA W/RFX UR CULTURE Stat Lab 05/12/23 22:39 Completed Medication Summary Discontinued Medications Generic Name Dose Route Start Last Admin Trade Name Freq PRN Reason Stop Dose Admin Dexamethasone Sodium Phosphate 10 mg 05/12/23 23:54 05/12/23 23:58 Dexamethasone Sod Phosphate 10 Mg/Ml IV 05/12/23 23:55 10 mg STAT ONE Administration Dexamethasone Sodium Phosphate Confirm 05/12/23 23:54 Dexamethasone Sod Phosphate 10 Mg/Ml Administered 05/12/23 23:55 Dose 10 mg .ROUTE .STK-MED ONE Sodium Chloride 1,000 mls @ 999 mls/hr 05/12/23 22:39 05/12/23 23:52 Sodium Chloride 0.9% 1000 Ml IV 05/12/23 23:39 Infused .Q1H1M STA Infusion Sodium Chloride Confirm 05/12/23 22:46 Sodium Chloride 0.9% 1000 Ml Administered 05/12/23 22:47 Dose 1,000 mls @ ud .ROUTE .STK-MED ONE Ketorolac Tromethamine 30 mg 05/12/23 23:54 05/12/23 23:58 Ketorolac Tromethamine 30 Mg/Ml Inj IV 05/12/23 23:55 30 mg STAT ONE Administration Ketorolac Tromethamine Confirm 05/12/23 23:54 Ketorolac Tromethamine 30 Mg/Ml Inj Administered 05/12/23 23:55 Dose 30 mg .ROUTE .STK-MED ONE Ondansetron HCl Confirm 05/13/23 00:02 Ondansetron Hcl 4 Mg/2 Ml Vial Administered 05/13/23 00:03 Dose 4 mg .ROUTE .STK-MED ONE Ondansetron HCl 4 mg 05/13/23 00:06 05/13/23 00:07 Ondansetron Hcl 4 Mg/2 Ml Vial IV 05/13/23 00:07 4 mg STAT ONE Administration Lab/Rad Data: Laboratory Result Diagrams 05/12/23 22:40 05/12/23 22:40 Laboratory Results 05/12/23 05/12/23 05/12/23 Range/Units 22:40 22:40 22:39 WBC 6.3 (4.0-10.5) x10^3/uL RBC 4.66 (4.1-5.6) x10^6/uL Hgb 13.5 (12.5-18.0) g/dL Hct 41.8 L (42-50) % MCV 89.7 (78-100) fL MCH 29.0 (26-32) pg MCHC 32.3 (32-36) g/dL RDW 13.2 (11.5-14.0) % Plt Count 287 (150-450) x10^3/uL MPV 10.8 (7.5-11.0) fL Gran % 60.1 (36.0-66.0) % Immature Gran % (Auto) 0.2 (0.00-0.4) % Nucleat RBC Rel Count 0.0 (0.00-0.1) % Eos # (Auto) 0.23 (0-0.5) x10^3/uL Immature Gran # (Auto) 0.01 (0.00-0.03) x10^3u/L Absolute Lymphs (auto) 1.60 (1.0-4.6) x10^3/uL Absolute Monos (auto) 0.61 (0.0-1.3) x10^3/uL Absolute Nucleated RBC 0.00 (0.00-0.01) x10^3u/L Lymphocytes % 25.6 (24.0-44.0) % Monocytes % 9.8 (0.0-12.0) % Eosinophils % 3.7 (0.00-5.0) % Basophils % 0.6 (0.0-0.4) % Absolute Granulocytes 3.76 (1.4-6.9) x10^3/uL Basophils # 0.04 (0-0.4) x10^3/uL Sodium 144 (137-145) mmol/L Potassium 3.8 (3.5-5.1) mmol/L Chloride 103 (98-107) mmol/L Carbon Dioxide 31 H (22-30) mmol/L Anion Gap 13.6 (5-15) MEQ/L BUN 24 H (9-20) mg/dL Creatinine 1.05 (0.66-1.25) mg/dL Estimated GFR > 60.0 ML/MIN Glucose 158 H (74-106) mg/dL Calcium 8.5 (8.4-10.2) mg/dL Total Bilirubin 0.60 (0.2-1.3) mg/dL AST 29 (17-59) U/L ALT 29 (0-50) U/L Alkaline Phosphatase 51 (38-126) U/L Serum Total Protein 7.8 (6.3-8.2) g/dL Albumin 4.2 (3.5-5.0) g/dL Urine Color Yellow (Yellow) Urine Appearance Clear (Clear) Urine pH 7.0 (4.6-8.0) Ur Specific [place] 1.020 (1.005-1.030) Urine Protein Negative (Negative) Urine Glucose (UA) Negative (Negative) mg/dL Urine Ketones Negative (Negative) Urine Blood Small A (Negative) Urine Nitrite Negative (Negative) Urine Bilirubin Negative (Negative) Urine Urobilinogen 1.0 A (0.2) mg/dL Ur Leukocyte Esterase Negative (Negative) U Hyaline Cast (Auto) NONE SEEN (0-2) /LPF Urine Microscopic RBC 11-20 A (0-5) /HPF Urine Microscopic WBC 0-2 (0-5) /HPF Ur Epithelial Cells None Seen (None Seen) /HPF Urine Bacteria None Seen (None Seen) /HPF Urine Culture Reflexed NO (NO) - Progress Progress: improved Counseled pt/family regarding: lab results, diagnosis, need for follow-up, rad results - Departure Departure Disposition: Home Clinical Impression: Back pain, Microscopic hematuria, Mesenteric panniculitis, Hepatomegaly, Fatty liver, Cholelithiasis, Umbilical hernia Condition: Stable Critical Care Time: No Referrals: YON CALDWELL [employer] [Primary Care Provider] - Follow up/PCP as directed Additional Instructions: Please follow-up with your primary care doctor within 48 hours for reevaluation. Discharge/Care Plan ALBA WILLIAMSON was seen on 05/13/23 in the Emergency Room. The patient was counseled regarding Diagnosis,Lab results, Imaging studies, need for follow up and when to return to the Emergency Room. Prescriptions given: Discharge Note I have spoken with the patient and/or caregivers. I have explained the patient's condition, diagnosis and treatment plan based on the information available to me at this time. I have answered the patient's and/or caregiver's questions and addressed any concerns. The patient and/or caregivers have as good understanding of the patient's diagnosis, condition and treatment plan as can be expected at this point. The vital signs have been stable. The patient's condition is stable and appropriate for discharge from the emergency department. The patient will pursue further outpatient evaluation with the primary care physician or other designated or consulting physician as outlined in the discharge instructions. The patient and/or caregivers are agreeable to this plan of care and follow-up instructions have been explained in detail. The patient and/or caregivers have received these instruction. The patient/and or caregivers are aware that any significant change in condition or worsening of symptoms should prompt an immediate return to this or the closest emergency department or call 911. Forms: Work/School Release Form Prescriptions: Ondansetron ODT 4 MG [Zofran Odt 4 mg] 4 mg PO Q6H PRN PRN #10 tablet PRN Reason: Vomiting Ketorolac Trometh 10 mg Tab [TORAdol 10 MG TABLET] 10 mg PO TID 5 Days #15 tablet
[2023-05-12 22:59] LABS: ALBUMIN 4.2 g/dL (3.5-5.0); ALKALINE PHOSPHATASE 51 U/L (38-126); ANION GAP 13.6 MEQ/L (5-15); BLOOD UREA NITROGEN 24 mg/dL (9-20); CHLORIDE 103 mmol/L (98-107); Calcium 8.5 mg/dL (8.4-10.2); Carbon Dioxide 31 mmol/L (22-30); Creatinine 1 1.05 mg/dL (0.66-1.25); EST GLOMERULAR FILTRATION RATE > 60.0 ML/MIN; Glucose 158 mg/dL (74-106); Potassium 3.8 mmol/L (3.5-5.1); SGOT/AST 29 U/L (17-59); SGPT/ALT 29 U/L (0-50); SODIUM 144 mmol/L (137-145); Total Protein 7.8 g/dL (6.3-8.2)
[2023-05-12 23:01] LABS: Appearance Clear (Clear); Bacteria None Seen /HPF (None Seen); Bilirubin Negative (Negative); Blood Small (Negative); Epithelial Cells None Seen /HPF (None Seen); Glucose, Urine Negative (Negative); Hyaline Casts NONE SEEN /LPF (0-2); Ketones Negative (Negative); Leukocyte Esterase Negative (Negative); Nitrite Negative (Negative); Protein,Urine Dip Negative (Negative); WBC 0-2 /HPF (0-5)
[2023-05-12 23:02] LABS: ADD URINE CULTURE? NO (NO)
--- NOTE | 2023-05-12 23:43 | XRAY ---
CLINICAL HISTORY:Pain; COMPARISON:None; TECHNIQUES:CT scan of the abdomen and pelvis was performed without IV contrast. Coronal and sagittal reconstructive images were also obtained; FINDINGS: Abdomen:. Area of mesenteric fat stranding seen with a thin capsule and encasing mesenteric vessels and few sub centimetric mesenteric nodes, suggestive of mesenteric panniculitis. The liver is mildly enlarged, measuring 17.4 cm with raised hemidiaphragm and resultant compressive atelectasis of the right lower lobe. It shows fatty infiltration. The intrahepatic biliary radicals and the bile ducts are normal. The spleen, pancreas, and adrenal glands are unremarkable. The kidneys are unremarkable. They are normal in size and shape. No calculi or hydronephrosis. The gallbladder is partially contracted and shows a small 3 mm calculus in its lumen. There is no evidence of wall thickening/ pericholecystic collection. The ascending colon, the transverse colon, and the descending colon visualized small bowel loops are unremarkable. There is no evidence of significant enlargement of the mesenteric or retroperitoneal lymph nodes. A defect is seen in the umbilical region with a defect measuring about 2.3 cm with herniation of omental fat through it. Pelvis:. The urinary bladder is unremarkable. The rectosigmoid colon is unremarkable. The prostate appears unremarkable. No evidence of pelvic lymphadenopathy. The lumbar spine shows early degenerative changes. IMPRESSION: Mesenteric panniculitis. Cholelithiasis, no evidence of acute cholecystitis. Uncomplicated fat containing umbilical hernia. Hepatomegaly with fatty infiltration. Electronically Signed by: Yordy Joshi MD. (05/12/2023 22:39:04 CORRESPONDENCE RENEW CLERK)
[2023-05-12] MEDS ORDERED: DECADRON 10MG INJ. IV ONE (23:54)
[2023-05-12] MEDS ORDERED: TORAdol 30 mg Injection IV ONE (23:54)
[2023-05-12] MEDS ORDERED: DECADRON 10MG INJ. ONE (23:54)
[2023-05-12] MEDS ORDERED: TORAdol 30 mg Injection ONE (23:54)
[2023-05-13] MEDS ORDERED: Zofran 4 MG/2 ML VIAL ONE (00:02)
[2023-05-13] MEDS ORDERED: Zofran 4 MG/2 ML VIAL IV ONE (00:06)
[2023-05-13 01:26] VITALS: BP 198/111; PULSE 74; O2SAT 91
== END 2023-05-13 01:30 | disposition home or self-care (01) ==
LOC: ED 22:10
DX: M54.50 Low back pain, unspecified (principal); R31.29 Other microscopic hematuria; K65.4 Sclerosing mesenteritis; K76.0 Fatty (change of) liver, not elsewhere classified; R16.0 Hepatomegaly, not elsewhere classified; K80.20 Calculus of gallbladder without cholecystitis without obstruction; K42.9 Umbilical hernia without obstruction or gangrene; I10 Essential (primary) hypertension; E11.9 Type 2 diabetes mellitus without complications; Z79.84 Long term (current) use of oral hypoglycemic drugs; Z79.899 Other long term (current) drug therapy
CPT/HCPCS: 36415; 74176; 80053; 81001; 85025; 96360; 96374; 96375; 99284; J1100; J1885; J2405